=== PATIENT | female | born 1930 | race Caucasian/White ===

== ENCOUNTER → 2016-02-19 | Outpatient (CLI) | payer OTHER, BC ==
[2010-06-20 11:09] VITALS: BP 142/80
== END ==
LOC: MMPC 11:11
PROVIDERS: ATTEND Internal Medicine
DX: E53.8 Deficiency of other specified B group vitamins (principal)
CPT/HCPCS: G0463; J3420

== ENCOUNTER → 2016-03-08 | Outpatient (CLI) | payer OTHER, BC ==
[2010-06-20 11:09] VITALS: BP 142/80
[2016-03-08 10:13] LABS: BASOPHILS # (AUTO) 0.04 10*3/UL; BASOPHILS % (AUTO) 0.6 % (0-1); HEMATOCRIT 39.4 % (37.0-47.0); HEMOGLOBIN 13.7 g/dL (12.0-16.0); IMM GRAN % (AUTO) 0.1 % (0-5); IMM GRAN# (AUTO) 0.01 10*3/UL; LYMPHOCYTES # (AUTO) 2.84 10*3/uL; MEAN CORPUSCULAR HEMOGLOBIN 31.9 PG (27-31); MEAN CORPUSCULAR HGB CONC 34.8 g/dL (33-37); MEAN PLATELET VOLUME 10.4 FL (7.4-12.2); MONOCYTES # (AUTO) 0.82 10*3/UL (0.3-0.8); MONOCYTES % (AUTO) 12.1 % (5-15); NEUTROPHILS # (AUTO) 2.78 10*3/UL; NEUTROPHILS % (AUTO) 41.2 % (50-80); RED BLOOD COUNT 4.29 10^6/uL (4.20-5.40); WHITE BLOOD COUNT 6.76 10^3/uL (4.8-10.8)
[2016-03-08 10:31] LABS: BILIRUBIN,TOTAL 0.8 mg/dL (0.3-1.2); BUN/CREATININE RATIO 14.44 (6-20); CALCIUM 10.2 mg/dL (8.7-10.7); CREATININE 0.9 mg/dL (0.50-1.20); LDL CHOLESTEROL,CALCULATED 140.4 mg/dL; POTASSIUM 3.9 meq/L (3.8-5.2); TOTAL PROTEIN 8.1 g/dL (6.1-8.0)
[2016-03-08 10:32] LABS: HEMOGLOBIN A1C 6.69 % (4.2-6.0); MEAN BLOOD GLUCOSE (CALC) 136.777 mg/dL
[2016-03-08 10:37] LABS: PLATELET MORPHOLOGY COMMENT NORMAL MORPHOLOGY (NORM)
== END ==
LOC: LAB 09:38
PROVIDERS: ATTEND Internal Medicine
DX: E11.9 Type 2 diabetes mellitus without complications (principal); E78.5 Hyperlipidemia, unspecified; E03.9 Hypothyroidism, unspecified
CPT/HCPCS: 36415; 80053; 80061; 82550; 83036; 84443; 85025

== ENCOUNTER → 2016-03-10 | Outpatient (CLI) | payer OTHER, BC ==
[2010-06-20 11:09] VITALS: BP 142/80
[2016-03-10 11:11] LABS: CREATININE, URINE 92.9 MG/DL (15-500)
== END ==
LOC: LAB 10:48
PROVIDERS: ATTEND Internal Medicine
DX: E11.9 Type 2 diabetes mellitus without complications (principal)
CPT/HCPCS: 82043

== ENCOUNTER → 2016-03-12 | Outpatient (CLI) | payer OTHER, BC ==
[2010-06-20 11:09] VITALS: BP 142/80
== END ==
LOC: MMPC 11:11
PROVIDERS: ATTEND Internal Medicine
DX: E11.9 Type 2 diabetes mellitus without complications (principal)
CPT/HCPCS: 99214; G0463

== ENCOUNTER → 2016-04-18 | Outpatient (CLI) | payer OTHER, BC ==
[2010-06-20 11:09] VITALS: BP 142/80
== END ==
LOC: MMPC 11:11
PROVIDERS: ATTEND Internal Medicine
DX: E53.8 Deficiency of other specified B group vitamins (principal)
CPT/HCPCS: G0463; J3420

== ENCOUNTER → 2016-05-16 | Outpatient (CLI) | payer OTHER, BC ==
[2010-06-20 11:09] VITALS: BP 142/80
== END ==
LOC: MMPC 11:11
PROVIDERS: ATTEND Internal Medicine
DX: E53.8 Deficiency of other specified B group vitamins (principal)
CPT/HCPCS: G0463; J3420

== ENCOUNTER → 2016-06-13 | Outpatient (CLI) | payer OTHER, BC ==
[2010-06-20 11:09] VITALS: BP 142/80
== END ==
LOC: MMPC 11:11
PROVIDERS: ATTEND Internal Medicine
DX: E53.8 Deficiency of other specified B group vitamins (principal)
CPT/HCPCS: G0463; J3420

== ENCOUNTER → 2016-07-18 | Outpatient (CLI) | payer OTHER, BC ==
[2010-06-20 11:09] VITALS: BP 142/80
== END ==
LOC: MMPC 11:11
PROVIDERS: ATTEND Internal Medicine
DX: E53.8 Deficiency of other specified B group vitamins (principal)
CPT/HCPCS: G0463; J3420

== ENCOUNTER → 2016-08-15 | Outpatient (CLI) | payer OTHER, BC ==
[2010-06-20 11:09] VITALS: BP 142/80
== END ==
LOC: MMPC 11:11
PROVIDERS: ATTEND Internal Medicine
DX: E53.8 Deficiency of other specified B group vitamins (principal)
CPT/HCPCS: G0463; J3420

== ENCOUNTER → 2016-08-18 | Outpatient (CLI) | payer OTHER, BC ==
[2010-06-20 11:09] VITALS: BP 142/80
[2016-08-20 15:06] LABS: A/G RATIO 0.89 (()); ALB PEP SER 4.1 g/dL (3.4-4.7); ALP1 GLOB 0.4 g/dL (0.1-0.3); ALP2 GLOB 1.5 g/dL (0.6-1.0); GAMMA GLOBS 1.6 g/dL (0.6-1.6)
== END ==
LOC: MOB LAB 15:14
PROVIDERS: ATTEND Internal Medicine
DX: E11.9 Type 2 diabetes mellitus without complications (principal); R63.4 Abnormal weight loss; E83.52 Hypercalcemia; E03.9 Hypothyroidism, unspecified; I10 Essential (primary) hypertension; E53.8 Deficiency of other specified B group vitamins
CPT/HCPCS: 36415; 84155; 84165; 99214; G0463